=== PATIENT | male | born 1970 | race Caucasian/White ===

== ENCOUNTER 2017-03-24 13:03 | Emergency (ER) | payer OTHER ==
[~2017-03-24] VITALS: Ht 180.3 cm; Wt 77.1 kg
[~2017-03-24 13:03] MED LIST: CEFTIN500 MG PO; DORYX100 MG PO; PYRIDIUM DS200 MG PO
[2017-03-24] MEDS ORDERED: KETO10TA2 PO (17:29)
== END 2017-03-24 17:33 | disposition home or self-care (01) ==
LOC: ER 13:03
DX: S62.663A Nondisplaced fracture of distal phalanx of left middle finger, initial encounter for closed fracture (principal); X50.3XXA Overexertion from repetitive movements, initial encounter; Y93.89 Activity, other specified; Y92.89 Other specified places as the place of occurrence of the external cause; Y99.8 Other external cause status

== ENCOUNTER 2019-01-01 11:40 | Emergency (ER) | payer OTHER ==
[~2019-01-01] VITALS: Ht 180.3 cm; Wt 77.1 kg
[~2019-01-01 11:40] MED LIST changes: +KETO10TA2 PO
== END 2019-01-01 17:30 | disposition home or self-care (01) ==
LOC: ER 11:40
DX: R19.7 Diarrhea, unspecified (principal); E86.0 Dehydration

== ENCOUNTER 2019-01-08 08:40 | Emergency (ER) | payer OTHER ==
[~2019-01-08] VITALS: Ht 180.3 cm; Wt 76.2 kg
[2019-01-08] MEDS ORDERED: RESTORA RX CAP1 EACH PO (15:21)
== END 2019-01-08 16:28 | disposition home or self-care (01) ==
LOC: ER 08:40
DX: R16.1 Splenomegaly, not elsewhere classified (principal); R19.7 Diarrhea, unspecified